=== PATIENT | female | born 1970 | race Caucasian/White ===

== ENCOUNTER 2017-11-26 13:01 | Emergency (ER) | payer OTHER ==
[2017-11-26] MEDS: HYDROCODONE/APAP (5/325) TAB PO (14:06)
== END 2017-11-26 15:09 | disposition home or self-care (01) ==
LOC: FTE 13:01
DX: M25.512 Pain in left shoulder (principal); J45.909 Unspecified asthma, uncomplicated
CPT/HCPCS: 73030; 81025; 99283-25

== ENCOUNTER 2018-01-31 18:26 | Emergency (ER) | payer OTHER ==
[2018-01-31] MEDS: LIDOCAINE 2%/EPI MPF (SDV) 20 ML VIAL INJ (20:04)
[2018-01-31] MEDS: STERILE WATER 1L IRRIG BTL IRR (20:04)
[2018-01-31] MEDS: ONDANSETRON 4 MG INJ IV (20:32)
[2018-01-31] MEDS: CEFAZOLIN 1 GM/50 ML (PMX) 50 ML IVPB (20:32)
[2018-01-31] MEDS: SOD CHLORIDE 0.9% 1,000 ML IV (20:32)
[2018-01-31] MEDS: morphine 4 MG/ML VIAL IV (20:32)
== END 2018-01-31 23:05 | disposition home or self-care (01) ==
LOC: FTE 18:26
DX: S81.812A Laceration without foreign body, left lower leg, initial encounter (principal); F17.210 Nicotine dependence, cigarettes, uncomplicated; W18.39XA Other fall on same level, initial encounter; Y92.9 Unspecified place or not applicable
CPT/HCPCS: 12004; 73590; 96374; 96375; 99284-25

== ENCOUNTER 2018-02-03 10:45 | Emergency (ER) | payer OTHER ==
[2018-02-03] MEDS: BACITRACIN 0.9 GM OINT TOP (11:31)
== END 2018-02-03 11:35 | disposition home or self-care (01) ==
LOC: FTE 10:45
DX: Z48.01 Encounter for change or removal of surgical wound dressing (principal); Z87.891 Personal history of nicotine dependence
CPT/HCPCS: 99281; Z7502

== ENCOUNTER 2018-02-12 08:04 | Emergency (ER) | payer OTHER | END 2018-02-12 09:01 | disposition home or self-care (01) | LOC: FTE 08:04 | DX: Z48.02 Encounter for removal of sutures (principal) | CPT/HCPCS: 99281 ==

== ENCOUNTER 2018-05-21 11:33 | Emergency (ER) | payer MEDICAID, OTHER ==
[2018-05-21] MEDS: CEFTRIAXONE 1 GM INJ IM (13:10)
[2018-05-21] MEDS: LIDOCAINE 1% (MPF) 5 ML VIAL INJ (13:10)
== END 2018-05-21 13:40 | disposition home or self-care (01) ==
LOC: FTE 11:33
DX: L03.116 Cellulitis of left lower limb (principal); F17.210 Nicotine dependence, cigarettes, uncomplicated
CPT/HCPCS: 96372; 99284-25

== ENCOUNTER 2018-05-23 16:14 | Emergency (ER) | payer MEDICAID ==
[2018-05-23] MEDS: LIDOCAINE 1%/EPI 30 ML INJ INJ (17:17)
[2018-05-23] MEDS ORDERED: LIDOCAINE 1%/EPI (MDV) 50 ML INJ INJ (17:30)
== END 2018-05-23 17:56 | disposition home or self-care (01) ==
LOC: FTE 16:14
DX: L02.416 Cutaneous abscess of left lower limb (principal)
CPT/HCPCS: 10060; 99282-25

== ENCOUNTER 2018-06-06 20:50 | Emergency (ER) | payer MEDICAID ==
[2018-06-07] MEDS: DIPHTH/TET/ACEL PERTUSS (ADULT) 0.5 ML VIAL IM* (00:52)
[2018-06-07] MEDS: CLINDAMYCIN 300 MG CAP PO (01:07)
[2018-06-07] MEDS: HYDROCODONE/APAP (10/325) TAB PO (01:34)
== END 2018-06-07 01:40 | disposition home or self-care (01) ==
LOC: FTE 20:50
DX: S80.262A Insect bite (nonvenomous), left knee, initial encounter (principal); L08.9 Local infection of the skin and subcutaneous tissue, unspecified; J45.909 Unspecified asthma, uncomplicated; F17.210 Nicotine dependence, cigarettes, uncomplicated; W57.XXXA Bitten or stung by nonvenomous insect and other nonvenomous arthropods, initial encounter; Y92.9 Unspecified place or not applicable
CPT/HCPCS: 99283; Z7610